=== PATIENT | male | born 1990 | race Caucasian/White ===

== ENCOUNTER 2025-03-11 07:55 | Emergency (ER) | payer SELFPAY | END 2025-03-11 08:25 | disposition left against medical advice (07) | LOC: ER 07:55 | DX: Z53.21 Procedure and treatment not carried out due to patient leaving prior to being seen by health care provider (principal) ==

== ENCOUNTER 2025-03-13 11:39 | Emergency (ER) | payer MEDICAID ==
[~2025-03-13] VITALS: Ht 175.3 cm; Wt 101.5 kg
[2025-03-13 11:42] VITALS: TEMP 99.4
--- NOTE | 2025-03-13 13:40 | Physician Documentation ---
History of Present Illness ~ General Chief Complaint: See Chief Complaint Stated Complaint: "PARASITE IN MY BPDY CRAWLING AROUND" Time Seen by MD: 12:26 Primary Medical Doctor: none History of Present Illness Initial Comments Patient is seen today with complaints of being hot outside. Patient denies having any chest pain or shortness of breath or abdominal pain or nausea, vomiting, diarrhea. Patient states it was simply hot outside any wanted to come inside. Patient has no other concern or complaint at this time. Medication Reconciliation Allergies: Coded Allergies: No Known Allergies (Unverified , 03/13/25) Review of Systems Constitutional: Denies: chills, fever, weakness Eyes: Denies: pain, blurred vision ENT: Denies: ear pain, nose pain, throat pain, mouth pain Respiratory: Denies: cough, shortness of breath Cardiovascular: Denies: chest pain, palpitations Gastrointestinal: Denies: abdominal pain, nausea, vomiting Genitourinary: Denies: burning, dysuria Male Genitalia: Denies: penile discharge, testicular pain Neurological: Denies: headache, dizziness Musculoskeletal: Denies: pain, swelling Integumentary: Denies: rash, lesions Allergic/Immunologic: Denies: hives, itching Hematologic/Lymphatic: Denies: no symptoms reported Psychiatric: Denies: depression, anxiety Physical Exam Physical Exam Vital Signs: Temperature: 99.4, Source: Oral, Heart Rate: 105, Respiratory Rate: 18, BP: 148/80, Pulse Oximetry: 94, Weight: 101.500 Oxygen Flow Rate: 0 Physical Exam General: Awake and Alert, no acute distress. Patient is resting very peacefully on the gurney snoring very loudly. HEENT: Conjunctiva pink, Sclera clear, Mucus Membranes moist. Neck: Supple without masses and tenderness. Resp: Unlabored. Lungs clear to auscultation bilaterally. Heart: Regular Rate and rhythm, normal S1 and S2 without murmur, rub or gallop. Abdomen: Soft and non tender no organomegaly Extremities: No cyanosis,clubbing or edema. Skin: Warm and Dry. Progress Results/Orders Results/Orders Vital Signs 03/13/25 11:42 Temp 99.4 Pulse 105 Resp 18 B/P (MAP) 148/80 Pulse Ox 94 O2 Flow Rate 0 Medical Decision Making Findings Patient is seen today with complaints of being hot outside. Patient denies having any chest pain or shortness of breath or abdominal pain or nausea, vomiting, diarrhea. Patient states it was simply hot outside any wanted to come inside. Patient has no other concern or complaint at this time. Shared decision-making utilized with the patient today. Patient given cold glass of water and will be discharged and will return to ED with any worsening, concerning or changing symptoms. Departure Disposition: HOME / SELF CARE / HOMELESS Impression: Primary Impression: Heat cramp Qualified Codes: T67.2XXA - Heat cramp, initial encounter Condition: Improved Discharge Instructions: Heat Exhaustion Additional Instructions: Shared decision-making utilized with the patient today. Patient given cold glass of water and will be discharged and will return to ED with any worsening, concerning or changing symptoms. Departure Forms: Excuse form Work or School Excused From: Work Excuse beginning now through the following date: March 14, 2025 Referrals: NO PRIMARY CARE PROVIDER (PCP) Signature Scribe Signature: No scribe Attestation: No scribe SUSY FROST PAC March 13, 2025 13:39
[2025-03-13 13:55] VITALS: BP 137/68; PULSE 70; RESP 16; O2SAT 96
== END 2025-03-13 13:56 | disposition home or self-care (01) ==
LOC: ER 11:40
DX: T67.2XXA Heat cramp, initial encounter (principal); X58.XXXA Exposure to other specified factors, initial encounter; Y93.89 Activity, other specified; Y92.89 Other specified places as the place of occurrence of the external cause; Y99.8 Other external cause status
CPT/HCPCS: 99281

== ENCOUNTER 2025-03-20 05:32 | Emergency (ER) | payer MEDICAID ==
[~2025-03-20] VITALS: Ht 175.3 cm; Wt 99.0 kg
--- NOTE | 2025-03-20 08:25 | Physician Documentation ---
History of Present Illness ~ Chief Complaint: Wound Stated Complaint: LEG LACS Time Seen by MD: 08:25 OK to notify your PCP?: Yes Primary Medical Doctor: none Source: patient, RN/, RN notes reviewed Mode of Arrival: POV Exam Limitations: no limitations HPI He is a 34 years old male presents to the ER with complaints of injury over the anterior aspect of bilateral ankle . He endorses that he got to injury over the ankles after standing in cold water in [facility] for 4-5 hours . He reports tingling sensation and pain over the bilateral foot, rated 7/10 . He reports that his primary care physician is in [facility]. Endorses swelling over the both foot right more than left He denied other complaints. He reports smoking cigarettes. She denied bladder and bowel irregularities , sleep and appetite disturbances. No calf pain. Denies chest pain, shortness of breath, palpitations, wheezing, fever, cough, abdominal pain, abdominal distention, decreased urine output. Tetanus within 5 years?: Yes Medication Reconciliation Allergies: Coded Allergies: No Known Allergies (Unverified , 03/20/25) Scheduled Sulfamethoxazole/Trimethoprim (Bactrim Ds Tablet), 1 TAB PO Q12H Scheduled PRN Ibuprofen* (Motrin*), 400 MG PO Q12H PRN for pain Discontinued Medications Ibuprofen* (Motrin*), 400 MG PO Q12H PRN for pain Discontinued Reason: Prescription changed Sulfamethoxazole/Trimethoprim (Bactrim Ds Tablet), 1 TAB PO Q12H Discontinued Reason: Prescription changed Past Medical History Past Medical History: No Pertinent History Past Surgical History: no surgical history Patient History: Patient reports no known family medical history. Smoking Status: Current every day smoker Alcohol Use: None Drug Use: none Lives with: Alone Lives In: Home Occupation: unemployed Past Social History: He denied alcohol use, drug intake Review of Systems All Other Systems at this time: Reviewed and Negative ROS Reviewed in full and negative except positive pertinent in hpi Physical Exam Vital Signs: RN Vital Signs have been reviewed: Yes, Temperature: 98.2, Source: Temporal, Heart Rate: 66, Respiratory Rate: 16, BP: 119/60, Pulse Oximetry: 97, Weight: 99.000 Oxygen Flow Rate: 0 Physical Exam General: Awake and Alert, no acute distress. HEENT: Conjunctiva pink, Sclera clear, Mucus Membranes moist. Neck: Supple without masses and tenderness. no midline tenderness on palpation or with full ROM Resp: Unlabored. Lungs clear to auscultation bilaterally. Heart: Regular Rate and rhythm, normal S1 and S2 without murmur, rub or gallop. Abdomen: Soft and non tender no organomegaly no signs of trauma Extremities: No cyanosis,clubbing or edema. Atraumatic. Bilateral ankles are swollen. Right foot more than left foot Skin: Warm and Dry. Abrasions with scab are over bilateral ankle. Abrasions over face and hands Neuro: GCS 15; no focal deficits Progress Results/Orders Reviewed/noted all lab results: Yes Results/Orders Vital Signs 03/20/25 11:36 Temp 98.2 Pulse 69 Resp 16 B/P (MAP) 122/61 Pulse Ox 98 Laboratory Tests Test 03/20/25 05:44 03/20/25 09:11 03/20/25 09:15 Glucometer 108 H White Blood Count 5.4 Red Blood Count 3.84 L Hemoglobin 11.4 L Hematocrit 34.0 L Mean Corpuscular Volume 88.7 Mean Corpuscular Hemoglobin 29.6 Mean Corpuscular Hemoglobin Concent 33.4 Red Cell Distribution Width 18.2 H Platelet Count 233 Mean Platelet Volume 8.3 Neutrophils (%) (Auto) 57.6 Lymphocytes (%) (Auto) 31.2 Monocytes (%) (Auto) 10.3 Eosinophils (%) (Auto) 0.6 Basophils (%) (Auto) 0.3 Neutrophils # (Auto) 3.1 Lymphocytes # (Auto) 1.7 Monocytes # (Auto) 0.6 Eosinophils # (Auto) 0.0 Basophils # (Auto) 0.0 CBC Comment Sodium Level 142 Potassium Level 3.7 Chloride Level 103 Carbon Dioxide Level 31.1 Anion Gap 8 Blood Urea Nitrogen 20 H Creatinine 0.87 Estimated GFR/1.73 m2 > 90 BUN/Creatinine Ratio 23.0 H Glucose Level 90 Lactic Acid Level 1.0 Calcium Level 8.7 Total Bilirubin 0.5 Aspartate Amino Transf (AST/SGOT) 53 H Alanine Aminotransferase (ALT/SGPT) 76 Alkaline Phosphatase 103 Total Protein 8.0 Albumin 3.0 L Globulin 5.0 H Albumin/Globulin Ratio 0.6 L Procalcitonin < 0.05 Chemistry Comments Urine Specimen Description Cln catch midstream Urine Color Yellow Urine Clarity Clear Urine pH 6.0 Urine Specific [place] 1.025 Urine Protein Negative Urine Glucose (UA) Negative Urine Ketones 15 H Urine Occult Blood Negative Urine Nitrite Negative Urine Bilirubin Small Urine Urobilinogen 4.0 H Urine Leukocyte Esterase Negative Urine Culture Indicated Not ind Volume Urine Centrifuged 10 ml Urine Comment Urine Opiates Screen Negative Urine Methadone Screen Negative Urine Fentanyl Screen Negative Urine Barbiturates Screen Negative Urine Phencyclidine Screen Negative Urine Amphetamines Screen Negative Urine Benzodiazepines Screen Negative Urine Cocaine Screen Negative Urine Cannabinoids Screen Positive Drug Screen Comment Re-Evaluation Re-Evaluation : Re-Evaluation: Improved, Unchanged Progress Patient was seen by the resident. I reviewed the case, physical exam and agreed with the management of the resident. EKG/XRAY/CT/US/VASC/MRI Chest X-Ray : Additional Comments EXAM: DI CHEST,SINGLE VIEW Indication: pain Technique: Single frontal view of the chest was obtained Comparison: None FINDINGS: Lines and Tubes: None Lungs: No focal consolidation. Pleura: No effusion. No pneumothorax. Cardiomediastinal contours: Unremarkable Bones: No acute osseous abnormality. IMPRESSION: No acute cardiopulmonary disease. Electronically Signed by:ARELY MILLARD MD Date & Time: 03/20/25928 Medical Decision Making Findings Impression: Bilateral Cellulitis, right foot more than left foot. Evaluated with CBC, CMP, lactic acid, procalcitonin, chest x-ray, urine analysis and urine tox Normocytic normochromic anemia(hemoglobin 11.4) Cmp is not impressive accept albumin levels of three. Glucose is 108 UA is normal, lactic acid & procalcitonin is normal. UA Tox positive for cannabinoids X-ray is normal Received Motrin 400 mg and bacitracin ointment for local application. Received one dose of Bactrim DS in ER. Treatment at discharge- Patient will be sending home with bacitracin, Motrin, Bactrim ds for seven days. Differential Dx:Considerations: Include: Cellulitis Departure Disposition: 01 HOME / SELF CARE / HOMELESS Impression: Primary Impression: Wound cellulitis Additional Impressions: Cellulitis of foot, right Cellulitis of left foot Discharge Instructions: Cellulitis, Adult, Abrasion, How to Change Your Wound Dressing Additional Instructions: Continue Bactrim DS p.o. b.i.d. for seven days. Continue motor being 400 mg p.o. b.i.d. PRN. Continued foot end elevation. Referrals: NO PRIMARY CARE PROVIDER (PCP) Prescriptions Ibuprofen* (Motrin*) 400 Mg Tablet 400 MG PO Q12H PRN for pain for 7 Days, #14 TAB Prov: JAMSE RUIZ, [facility] 03/20/25 Sulfamethoxazole/Trimethoprim (Bactrim Ds Tablet) 800 Mg-160 Mg Tablet 1 TAB PO Q12H for 7 Days, #14 TAB Prov: JAMES RUIZ, [facility] 03/20/25 Education Educated: Patient Educated regarding: diagnosis, treatment, prognosis, need for follow up Signature Scribe Signature: The note accurately reflects work and decisions made by me.James Ruiz - Resident 03/20/25 10:35 Scribed for Nikko Cunningham MD by Shannan Ganrer . 03/20/25 11:23 (progress) Attestation: The note accurately reflects work and decisions made by me.James Ruiz - Resident 03/20/25 10:35 The note accurately reflects work and decisions made by me.Nikko Cunningham MD 03/20/25 08:25 NIKKO CUNNINGHAM MD Mar 20, 2025 08:25 JAMES RUIZ, [facility] Mar 20, 2025 10:18 SHANNAN BACON Mar 20, 2025 11:23
[2025-03-20] MEDS ORDERED: morphine 2 MG/ML inj. syringe IV ONE (08:50)
[2025-03-20] MEDS: bacitracin 15gm ointment TP ONE (08:59)
[2025-03-20] MEDS: ibuprofen tablet 400 MG TABLET PO ONE (08:59)
[2025-03-20 09:29] LABS: BASOPHILS % (AUTO) 0.3 % (0-1); EOSINOPHILS % (AUTO) 0.6 % (0-6); HEMOGLOBIN 11.4 g/dl (14.0-17.9); LYMPHOCYTES # (AUTO) 1.7 X10'3 (1.1-4.8); LYMPHOCYTES % (AUTO) 31.2 % (21-51); MEAN CORPUSCULAR HEMOGLOBIN 29.6 PG (27.0-31.0); MEAN CORPUSCULAR HGB CONC 33.4 g/dL (33.0-36.5); MEAN CORPUSCULAR VOLUME 88.7 FL (78-98); MEAN PLATELET VOLUME 8.3 FL (7.4-10.4); MONOCYTES # (AUTO) 0.6 X10'3 (0-0.9); MONOCYTES % (AUTO) 10.3 % (2-12); NEUTROPHILS # (AUTO) 3.1 X10'3 (1.8-7.7); NEUTROPHILS % (AUTO) 57.6 % (42-75); PLATELET COUNT 233 X10'3 (140-440); RED BLOOD COUNT 3.84 X10'6 (4.70-6.10); RED CELL DISTRIBUTION WIDTH 18.2 % (11.5-14.5); WHITE BLOOD COUNT 5.4 X10'3 (4.5-11.0)
[2025-03-20 09:30] LABS: BILIRUBIN,URINE SMALL (Neg); CLARITY,URINE CLEAR (Clear); COLOR,URINE YELLOW (Yellow); GLUCOSE, URINE NEGATIVE (Neg); KETONES,URINE 15 mg/dl (Neg); LEUKOCYTE ESTERASE ,URINE NEGATIVE (Neg); NITRITES, URINE NEGATIVE (Neg); OCCULT BLOOD,URINE NEGATIVE (Neg); PROTEIN,URINE NEGATIVE (Neg)
--- NOTE | 2025-03-20 09:31 | RADIOLOGY REPORT ---
EXAM: DI CHEST,SINGLE VIEW Indication: pain Technique: Single frontal view of the chest was obtained Comparison: None FINDINGS: Lines and Tubes: None Lungs: No focal consolidation. Pleura: No effusion. No pneumothorax. Cardiomediastinal contours: Unremarkable Bones: No acute osseous abnormality. IMPRESSION: No acute cardiopulmonary disease.
[2025-03-20 09:32] LABS: UA COLLECTION TYPE CLN CATCH MIDSTREAM
[2025-03-20 09:41] LABS: ALANINE AMINOTRANSFERASE 76 U/L (12-78); ALBUMIN/GLOBULIN RATIO 0.6 (1.1-1.5); ALKALINE PHOSPHATASE 103 IU/L (46-116); ANION GAP 8 (8-16); ASPARTATE AMINO TRANSFERASE 53 U/L (10-37); BILIRUBIN,TOTAL 0.5 MG/DL (0.1-1.0); BLOOD UREA NITROGEN 20 MG/DL (7-18); CALCIUM 8.7 MG/DL (8.5-10.1); CHLORIDE 103 MMOL/L (99-107); CREATININE 0.87 MG/DL (0.60-1.10); GLUCOSE 90 MG/DL (70-104); POTASSIUM 3.7 MMOL/L (3.5-5.1); SODIUM 142 MMOL/L (135-145); TOTAL CARBON DIOXIDE 31.1 MMOL/L (24-32); eCRCL 117 ML/MIN; eGFR > 90 ML/MIN
[2025-03-20 10:03] LABS: URINE AMPHETAMINE SCREEN NEGATIVE (Neg); URINE BARBITUATE SCREEN NEGATIVE (Neg); URINE BENZODIAZEPINES SCREEN NEGATIVE (Neg); URINE CANNABINOID SCREEN POSITIVE (Neg); URINE COCAINE SCREEN NEGATIVE (Neg); URINE METHADONE SCREEN NEGATIVE (Neg); URINE OPIATE SCREEN NEGATIVE (Neg); URINE PHENCYCLIDINE SCREEN NEGATIVE (Neg)
[2025-03-20] MEDS ORDERED: IBUP-1984 PO (11:02)
[2025-03-20] MEDS ORDERED: SULF1TAB49 PO (11:02)
[2025-03-20] MEDS: sulfamethoxazole/trimethoprim DS (800/160mg) tablet PO ONE (11:06)
[2025-03-20 11:36] VITALS: BP 122/61; PULSE 69; RESP 16; TEMP 98.2; O2SAT 98
== END 2025-03-20 11:26 | disposition home or self-care (01) ==
LOC: ER 05:33
DX: L03.115 Cellulitis of right lower limb (principal); L03.116 Cellulitis of left lower limb; F17.210 Nicotine dependence, cigarettes, uncomplicated
CPT/HCPCS: 36415; 71045; 80053; 80305; 81003; 82948; 83605; 84145; 85025; 99284; A6258